=== PATIENT | female | born 1990 | race Caucasian/White ===

== ENCOUNTER 2018-03-06 13:11 | Day surgery (SDC) | payer MEDICAID ==
[~2018-03-06] VITALS: Ht 162.6 cm; Wt 63.0 kg
[~2018-03-06 13:11] MED LIST: NORG7TAB PO
[2018-03-06] MEDS ORDERED: PROPOFOL 1% 20 ML VIAL IVP ONE (13:12)
[2018-03-06] MEDS ORDERED: LIDOCAINE/PF 2% 5 ML VIAL IM ONE (13:12)
[2018-03-06] MEDS ORDERED: MIDAZOLAM HCL 2 MG/2 ML VIAL IVP ONE (13:12)
[2018-03-06] MEDS ORDERED: SODIUM CHLORIDE 0.9% 1,000 ML IV ONE ×2 (13:30→13:34)
== END 2018-03-06 16:15 | disposition home or self-care (01) ==
LOC: SURGERY 13:11
PROVIDERS: ATTEND Internal Medicine Gastroenterology
DX: K64.8 Other hemorrhoids (principal); D64.9 Anemia, unspecified; K62.5 Hemorrhage of anus and rectum; F12.21 Cannabis dependence, in remission; Z87.42 Personal history of other diseases of the female genital tract; Z79.1 Long term (current) use of non-steroidal anti-inflammatories (NSAID); Z91.011 Allergy to milk products; Z90.89 Acquired absence of other organs; Z72.89 Other problems related to lifestyle; Z79.899 Other long term (current) drug therapy
CPT/HCPCS: 45378; 84703; J2250; J2704; J3490; J7030